=== PATIENT | male | born 1955 | race Caucasian/White ===

== ENCOUNTER 2019-07-16 18:14 | Emergency (ER) | payer OTHER ==
[~2019-07-16] VITALS: Ht 182.9 cm; Wt 102.3 kg
[2019-07-16 18:41] VITALS: BP 120/68
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
== END 2019-07-16 19:54 | disposition home or self-care (01) ==
LOC: ER 18:15
DX: I50.9 Heart failure, unspecified (principal); Z88.8 Allergy status to other drugs, medicaments and biological substances
CPT/HCPCS: 99283